=== PATIENT | female | born 2005 | race Caucasian/White ===

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

== ENCOUNTER 2024-12-08 20:40 | Emergency (ER) | payer OTHER, SELFPAY | END 2024-12-08 21:19 | disposition home or self-care (01) | LOC: ERS 20:40 | DX: S90.851A Superficial foreign body, right foot, initial encounter (principal); W22.8XXA Striking against or struck by other objects, initial encounter | CPT/HCPCS: 99283 ==